=== PATIENT | male | born 1965 | race Caucasian/White ===

== ENCOUNTER 2023-03-31 08:52 | Emergency (ER) | payer OTHER, SELFPAY ==
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
[2023-03-31 09:09] VITALS: BP 174/102; PULSE 80; RESP 16; TEMP 37.2; O2SAT 99
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
== END 2023-03-31 10:58 | disposition home or self-care (01) ==
PROVIDERS: Emergency Provider Nurse Practitioner
DX: S42.022A Displaced fracture of shaft of left clavicle, initial encounter for closed fracture (principal); V17.4XXA Pedal cycle driver injured in collision with fixed or stationary object in traffic accident, initial encounter; Y93.55 Activity, bike riding; I10 Essential (primary) hypertension; R07.81 Pleurodynia
CPT/HCPCS: 71100; 73000; 99214; A4565; G0463

== ENCOUNTER 2023-04-02 10:16 | Emergency (ER) | payer OTHER, SELFPAY ==
[2023-04-02 10:27] VITALS: BP 138/80; PULSE 95; RESP 18; TEMP 36.6; O2SAT 96
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
== END 2023-04-02 11:13 | disposition home or self-care (01) ==
PROVIDERS: Emergency Provider Nurse Practitioner
DX: S42.002A Fracture of unspecified part of left clavicle, initial encounter for closed fracture (principal); T14.90XA Injury, unspecified, initial encounter
CPT/HCPCS: 99213; A4565; G0463

== ENCOUNTER 2023-04-26 18:20 | Inpatient (IN) | payer OTHER, SELFPAY ==
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
--- NOTE | ~2023-04-26 | CT_ITS ---
EXAMINATION: CT abdomen pelvis w con DATE: 04/26/2023 20:56 INDICATION: abdominal pain, elevated LFT's TECHNIQUE: Computed tomography (CT) of the abdomen and pelvis was performed with 100 mL Omnipaque-350 intravenous contrast. Automated exposure control and iterative reconstruction technique were employe d. The dose-length product was 936.13 mGy-cm. COMPARISON: None. FINDINGS: Motion artifact in the lungs and upper abdomen. Lower thorax: Small hiatal hernia. Coronary artery calcifications. Liver: Enlarged fatty infiltrated liver. Biliary/Gallbladder: Gallbladder is normal. No bile duct dilation. Pancreas: No mass or duct dilation. Spleen: Normal. Adrenals:No mass. Kidneys: No suspicious mass, obstructing stone, or hydronephrosis. GI tract: Distal esophageal wall thickening and edema. No small or large bowel dilation. Normal appen chiquis. Diverticulosis without diverticulitis. Mesentery/Peritoneum: No ascites, mass, or free air. Retroperitoneum: No mass. Atherosclerotic abdominal aortic and/or arterial calcifications. Pelvis: Pelvic organs are within normal limits. Soft Tissues: Soft tissues and body wall unremarkable. Bones: No acute osseous finding. IMPRESSION: Esophagitis and distal esophageal wall thickening, consider referral for outpatient endoscopy. Hepatomegaly and steatosis Reviewed, dictated and finalized at location K. IMPRESSION: Esophagitis and distal esophageal wall thickening, consider referral for outpat ient endoscopy. Hepatomegaly and steatosis
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
--- NOTE | ~2023-04-26 | US_ITS ---
EXAMINATION: US abdomen limited DATE: 04/27/2023 08:56 INDICATION: Hepatitis. TECHNIQUE: Multiple grayscale and Doppler ultrasound images of the abdomen were obtained. COMPARISON: CT abdomen and pelvis 04/26/2023 FINDINGS: The visualized portions of the head and body of the pancreas are normal. There is diffuse h epatic steatosis. No liver surface nodularity. There is normal flow in main portal vein. The gallblad lesa is normal in size. No gallstones or gallbladder wall thickening. There was no sonographic Gomes sign. The common duct is normal and measures 3 mm. IMPRESSION: 1. Diffuse hepatic steatosis. Reviewed, dictated and finalized at location A.
[2023-04-26 18:18] VITALS: BP 118/86; PULSE 126; RESP 24; TEMP 37.2; O2SAT 98
[2023-04-26 18:44] LABS: Basophils Percent Auto 0.2 % (0.2-1.2); Hematocrit 44.1 % (42.0-52.0); Hemoglobin 15.8 g/dL (14.0-18.0); Immature Granulocyte Absolute 0.09 K/mm3 (0.00-0.031); Immature Platelet Fraction Pct 10.7 % (0.9-11.2); Lymphocytes Percent Auto 5.6 % (18.3-44.2); Mean Corpuscular HGB Conc 35.8 g/dl (32-36); Mean Corpuscular Hemoglobin 34.6 pg (26-34); Mean Corpuscular Volume 96.5 fl (80-100); Mean Platelet Volume 11.1 fl (7.4-10.4); Monocytes Absolute Auto 0.4 K/mm3 (0.1-0.6); Neutrophils Percent Auto 89.2 % (45.5-73.1); Platelet Count Result 103 k/mm3 (150-375); Red Blood Count 4.57 M/mm3 (4.6-6.20); Red Cell Distribution Width 12.7 % (11.5-14.5)
[2023-04-26 18:49] LABS: Ethanol < 10 mg/dL (<10)
[2023-04-26 19:00] LABS: Albumin Level 4.5 g/dL (3.5-5.1); Alkaline Phosphatase 159 U/L (38-126); Anion Gap 19 mmol/L (8-16); Bilirubin,Total 6.2 mg/dL (0.2-1.3); Blood Urea Nitrogen 20 mg/dL (9-20); Calcium 8.6 mg/dL (8.4-10.2); Carbon Dioxide 16 mmol/L (22-30); Chloride 91 mmol/L (98-107); Estimated CRCL calculation 70 ml/min; Estimated Glomerular Filt Rate > 60; Glucose 102 mg/dL (65-110); Sodium 126 mmol/L (137-145)
[2023-04-26 19:10] LABS: Platelet Estimate Decreased (Adequate); Schistocytes None Seen (NORMAL)
[2023-04-26 19:30] LABS: Thyroid Stimulating Hormone 0.645 uIU/mL (0.465-4.680)
[2023-04-26 19:59] LABS: Alanine Aminotransferase > 3750 U/L (6-50)
[2023-04-26 20:04] LABS: Aspartate Amino Transferase > 7500 U/L (17-59)
[2023-04-26 20:51] LABS: Amphetamine Screen Urine Negative (Negative); Barbiturate Screen Urine Negative (Negative); Benzodiazepines Screen Urine Negative (Negative); Cannabinoid Screen Urine Positive (Negative); Cocaine Screen Urine Negative (Negative); Methadone Screen Urine Negative (Negative); Opiate Screen Urine Negative (Negative); Phencyclidine Screen Urine Negative (Negative)
[2023-04-26 20:53] LABS: Influenza A QL RT-PCR Negative (Negative); Influenza B QL RT-PCR Negative (Negative); RSV RNA, RT-PCR Negative (Negative); SARS-CoV-2 RNA PCR Negative (Negative)
[2023-04-26 20:53] LABS: Ammonia 14 umol/L (9-30)
[2023-04-26 21:00] LABS: INR 2.3; Prothrombin Time 26.8 Seconds (11.1-14.7)
[2023-04-26 21:01] LABS: Partial Thromboplastin Time 34.2 SECONDS (22.3-36.8)
[2023-04-26] MEDS: THIAMINE 500 MG/NS 100 ML 500 MG/100 ML BAG 200 MG IVPB (21:03)
[2023-04-26 21:04] LABS: Appearance Urine Turbid (Clear); Bacteria Urine None Seen /hpf; Bilirubin Urine 3+ (Negative); Blood Urine 2+ (Negative); Color Urine Dark Yellow (Yellow); Glucose Urine UA Negative (Negative); Granular Casts Urine Present /lpf; Ketones Urine Trace mg/dL (Negative); Leukocyte Esterase Ur 1+ LEU/UL (Negative); Need Manual Microscopic Reviewed; Nitrate Urine Positive (Negative); Non Pathogenic Casts >20; Protein Urine 2+ mg/dL (Negative); Specific Grav Ur 1.026 (1.001-1.035); Squamous Epithelial Cell Urine Many /hpf (Few); WBC Urine 0-5 /hpf
[2023-04-26] MEDS: SODIUM CHLORIDE 0.9% IV 1,000 ML 999 ML IV CONT (21:04)
[2023-04-26 21:06] VITALS: BP 108/74; PULSE 112; RESP 18; O2SAT 97
[2023-04-26 21:06] LABS: Add Urine Microscopic? YES
--- NOTE | 2023-04-26 21:27 | ED.GENADULT ---
HPI - General Adult General Chief complaint: Psychiatric Symptoms Stated complaint: visual hallucinations, tachycardia Time Seen by Provider: 04/26/23 20:02 History of Present Illness HPI narrative: Patient is a 58-year-old gentleman who presents the emergency department with chief complaint of visual and auditory hallucinations. Patient reports he has prior history of alcohol use normally drinks minimum a sixpack a day on the weekdays but mixes that with shots and also drinks a lot more on the weekends the patient reports that he recently had a fall had a fracture of his clavicle and has had intermittent episodes of having visual hallucinations since then the patient reports that he has not had a drink in multiple hours today and reports that he sees things and hears things the patient also reports that he is shaky and reports that he does feel somewhat weak Related Data Allergies Allergy/AdvReac Type Severity Reaction Status Date / Time No Known Allergies Allergy Verified 04/26/23 18:34 Review of Systems Review of Systems: A 10 system review of systems was completed on the patient and is negative except for what is stated in the HPI. Nursing and ancillary documentation was reviewed. Exam Narrative: GENERAL: Well-appearing, well-nourished, and in no acute distress. HEAD: Normocephalic, atraumatic. EYES: PERRLA and EOMI. icteric ENT: Nares clear, no rhinorrhea or epistaxis. Mucous membranes moist. NECK: Supple. CHEST: Clear to auscultation. No respiratory distress. HEART: Regular rate and rhythm. No murmur heard. Normal peripheral pulses. ABDOMEN: Soft, nontender, nondistended, normal active bowel sounds. EXTREMITIES: Normal range of motion. No edema. SKIN: Warm, dry, no rash. NEURO: No focal deficits. Alert and oriented x3. Somewhat tremulous PSYCH: Normal mood and affect. Course Vital Signs Vital signs: Vital Signs Temperature 37.2 C 04/26/23 18:18 Pulse Rate 126 H 04/26/23 18:18 Respiratory Rate 24 H 04/26/23 18:18 Blood Pressure 118/86 04/26/23 18:18 Pulse Oximetry 98 04/26/23 18:18 Oxygen Delivery Room Air 04/26/23 18:18 Temperature 37.2 C 04/26/23 18:18 Pulse Rate 112 H 04/26/23 23:06 Respiratory Rate 15 04/26/23 23:06 Blood Pressure 138/98 H 04/26/23 23:06 Pulse Oximetry 97 04/26/23 23:06 Oxygen Delivery Room Air 04/26/23 18:18 Medical Decision Making [facility] Narrative Medical decision making narrative: Differential diagnosis includes alcohol withdrawal, psychiatric complaint, psychosis, liver failure, hepatic encephalopathy, infection Laboratory studies were obtained and the patient showed a CBC with a white count of 9.0 hemoglobin is 15.8 platelets were slightly decreased at 103 electrolytes showed a sodium of 126 potassium was 3.0 CO2 was 16 renal function showed a creatinine of 1.0 bilirubin was 6.2 and AST was greater than 7500 ALT was greater than 3750 ammonia was 14 TSH was normal at 0.645 urinalysis showed positive nitrate +1 leukocyte esterase Urine drug screen was positive for cannabinoids EtOH was less than 10 flu and COVID and RSV were negative CT head CT C-spine and CT abdomen pelvis showed no acute abnormalities EKG showed sinus tachycardia with a rate of 111 The patient has a calculated MELD score of 30 Patient was given 300 mg of thiamine was also given IV fluids and Ativan in the emergency department patient was given a gram of Rocephin to treat possible urinary tract infection The case was discussed with the hepatology service at [facility] and the patient is currently on the wait list at [facility] The hepatology service recommended since the patient does have elevated liver enzymes that there is possibility that this could be related to acetaminophen toxicity and further questioning of the patient did reveal that he has been taking a fair amount of Tylenol a Tylenol level has been sent on the patient and also the patient was started on Acet
--- NOTE | 2023-04-26 21:58 | ECG_ITS ---
Measurements Intervals [place] Rate: 111 P: 63 ID: 140 QRS: 38 QRSD: 101 T: 61 QT: 373 QTc: 509 Interpretive Statements SINUS TACHYCARDIA INCOMPLETE RIGHT BUNDLE BRANCH BLOCK NONSPECIFIC ST & T-WAVE ABNORMALITY- DIFFUSE LEADS BASELINE ARTIFACT- I, III, AVR, AVL, AVF, V1-V2 ABNORMAL ECG NO PREVIOUS ECG AVAILABLE FOR COMPARISON Electronically Signed On 04-27-2023 6:28:33 CDT by Josh Turner D.O.
[2023-04-26] MEDS: predniSONE 20 MG TABLET 60 MG PO (22:18)
[2023-04-26] MEDS: POTASSIUM CHLORIDE 20 MEQ PACKET (FOR LIQUID) 40 MEQ PO (22:18)
[2023-04-26] MEDS: LORazepam INJ (*CRX) 2 MG/ML VIAL 1 MG IV PUSH (22:18)
[2023-04-26 22:23] LABS: Magnesium 1.7 mg/dL (1.6-2.3)
[2023-04-26] MEDS: rifAXIMin 550 MG TABLET PO (23:00)
[2023-04-26] MEDS: MAGNESIUM SULF 2 GM/WATER 50ML 2 GM/50 ML BAG IVPB (23:00)
[2023-04-26 23:06] VITALS: BP 138/98; PULSE 112; RESP 15; O2SAT 97
[2023-04-26] MEDS: LORazepam INJ (*CRX) 2 MG/ML VIAL 4 MG IV PUSH (23:53)
[2023-04-26] MEDS: SODIUM CHLORIDE 0.9% IV 1,000 ML 100 ML IV CONT (23:54)
[2023-04-27] VITALS (12 sets, daily range): BP systolic 111–170; BP diastolic 77–118; PULSE 86–142; RESP 17–30; TEMP 36.2–37.6; O2SAT 92–97; BMI 24.4
[2023-04-27 00:02] LABS: Acetaminophen < 10 ug/mL (10-30)
[2023-04-27] MEDS: THIAMINE 500 MG/NS 100 ML 500 MG/100 ML BAG 200 MG IVPB ×2 (00:20→09:37)
[2023-04-27 00:37] LABS: Hepatitis B Surface Antigen Negative (Negative)
[2023-04-27 00:38] LABS: Alkaline Phosphatase 141 U/L (38-126); Anion Gap 11 mmol/L (8-16); Blood Urea Nitrogen 21 mg/dL (9-20); CRP 0.9 mg/dL (<1.0); Calcium 8.1 mg/dL (8.4-10.2); Carbon Dioxide 20 mmol/L (22-30); Chloride 93 mmol/L (98-107); Estimated CRCL calculation 94 ml/min; Estimated Glomerular Filt Rate > 60; Glucose 105 mg/dL (65-110); Magnesium 2.7 mg/dL (1.6-2.3); Phosphorus 2.7 mg/dL (2.5-4.5); Potassium 3.7 mmol/L (3.4-5.0); Sodium 124 mmol/L (137-145)
[2023-04-27 00:43] LABS: HAV RESULT Negative (Negative); Hepatitis B Core IgM Result Negative (Negative)
[2023-04-27 00:54] LABS: Hepatitis C Virus Antibody Negative (Negative)
[2023-04-27 00:55] LABS: Alanine Aminotransferase > 3750 U/L (6-50)
--- NOTE | 2023-04-27 00:57 | ADMGEN ---
This patient, Shaun Thompson, was admitted to Intensive Care Unit-1. Patient/family oriented to hospital policies and general routines including ID bracelet, bed and alarms, visiting hours, pain management, procedures, bathroom and other care routines, personal items, smoking policy, room service/diet, and visiting hours. Information on how to activate the Rapid Response Team has been discussed. Patient/Family are encouraged to report perceived risks to care and to ask questions if they do not understand what they are told or what they should do.
[2023-04-27 01:13] LABS: Aspartate Amino Transferase > 7500 U/L (17-59); Lactate Dehydrogenase > 5000 U/L (120-246)
--- NOTE | 2023-04-27 01:50 | PC.NURSE ---
called DR. Mo at [phone] he answeres the phone at [phone]
[2023-04-27] MEDS: LORazepam INJ (*CRX) 2 MG/ML VIAL 4 MG IV PUSH ×2 (02:06→04:08)
[2023-04-27 02:24] LABS: Thyroid Stimulating Hormone Reflex 0.327 uIU/mL (0.465-4.68)
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
[2023-04-27 03:15] LABS: Ferritin > 2000.00 ng/mL (11.1-264)
[2023-04-27 03:42] LABS: Free T4 Free Thyroxine Reflex 2.73 ng/dL (0.78-2.19)
[2023-04-27] MEDS: hydrALAZINE HCL 20 MG/ML VIAL 10 MG IV PUSH (03:51)
[2023-04-27 05:06] LABS: Basophils Percent Auto 0.1 % (0.2-1.2); Hematocrit 39.5 % (42.0-52.0); Hemoglobin 14.3 g/dL (14.0-18.0); Immature Granulocyte Absolute 0.06 K/mm3 (0.00-0.031); Immature Granulocyte Percent A 0.9 % (0-0.5); Immature Platelet Fraction Pct 9.2 % (0.9-11.2); Lymphocytes Absolute Auto 0.16 K/mm3 (0.9-3.2); Lymphocytes Percent Auto 2.4 % (18.3-44.2); Mean Corpuscular HGB Conc 36.2 g/dl (32-36); Mean Corpuscular Hemoglobin 34.7 pg (26-34); Mean Corpuscular Volume 95.9 fl (80-100); Mean Platelet Volume 11.2 fl (7.4-10.4); Monocytes Absolute Auto 0.3 K/mm3 (0.1-0.6); Monocytes Percent Auto 4.2 % (2.6-8.5); Neutrophils Absolute Auto 6.2 K/mm3 (1.3-6.7); Neutrophils Percent Auto 92.4 % (45.5-73.1); Platelet Count Result 92 k/mm3 (150-375); Red Blood Count 4.12 M/mm3 (4.6-6.20); Red Cell Distribution Width 12.5 % (11.5-14.5); White Blood Count 6.7 K/mm3 (4.5-10.0)
[2023-04-27 05:15] LABS: INR 2.8; Partial Thromboplastin Time 33.8 SECONDS (22.3-36.8); Prothrombin Time 31.2 Seconds (11.1-14.7)
[2023-04-27 05:16] LABS: Fibrinogen 272 mg/dl (215-510)
[2023-04-27 05:23] LABS: Albumin Level 3.8 g/dL (3.5-5.1); Alkaline Phosphatase 97 U/L (38-126); Anion Gap 16 mmol/L (8-16); Bilirubin,Total 5.7 mg/dL (0.2-1.3); Blood Urea Nitrogen 17 mg/dL (9-20); Calcium 8.1 mg/dL (8.4-10.2); Carbon Dioxide 16 mmol/L (22-30); Chloride 94 mmol/L (98-107); Estimated CRCL calculation 126 ml/min; Estimated Glomerular Filt Rate > 60; Glucose 136 mg/dL (65-110); Magnesium 2.2 mg/dL (1.6-2.3); Phosphorus 1.9 mg/dL (2.5-4.5); Potassium 3.3 mmol/L (3.4-5.0); Sodium 126 mmol/L (137-145)
[2023-04-27 05:56] LABS: Alanine Aminotransferase > 3750 U/L (6-50); Aspartate Amino Transferase > 7500 U/L (17-59); Lactate Dehydrogenase > 5000 U/L (120-246)
[2023-04-27] MEDS: PANTOPRAZOLE SODIUM IV 40 MG VIAL IV PUSH (08:51)
[2023-04-27] MEDS: methylPREDNISolone SOD SUCC 40 MG VIAL 32 MG IV PUSH (08:53)
[2023-04-27] MEDS: FOLIC ACID 1 MG/0.2 ML INJ IV PUSH (08:53)
[2023-04-27] MEDS: SODIUM CHLORIDE 0.9% IV 1,000 ML 125 ML IV CONT (08:53)
--- NOTE | 2023-04-27 09:05 | WPDCNINT ---
Assessment and Plan Assessment and plan (1) Acute hepatitis: Code(s): B17.9 - Acute viral hepatitis, unspecified Status: Acute Assessment and Plan: Patient presented with significantly elevated liver enzymes bilirubin INR and LDH. His ammonia is normal but his INR is 2.8 Patient has history of heavy alcohol use along with Tylenol use although his alcohol and Tylenol levels were both low Hepatitis viral panel was negative CT abdomen pelvis Esophagitis and distal esophageal wall thickening, consider referral for outpatient endoscopy. Hepatomegaly and steatosis Ultrasound right upper quadrant - Diffuse hepatic steatosis.. Normal flow in main portal vein At this point appears to be likely combination of alcohol-induced hepatitis and possible acetaminophen toxicity Consult GI Continue N-acetylcysteine infusion Change prednisone to IV Solu-Medrol with the colon dose as patient discriminant factor is high for alcohol hepatitis Monitor LFTs ammonia and INR Patient is currently on wait list at [facility] be transferred once bed is available (2) Alcohol withdrawal delirium, acute, hyperactive: Code(s): F10.931 - Alcohol use, unspecified with withdrawal delirium Status: Acute Assessment and Plan: Patient is getting p.r.n. Ativan based on his CIWA score May need Precedex Continue thiamine and folic acid (3) Thrombocytopenia: Code(s): D69.6 - Thrombocytopenia, unspecified Status: Acute Assessment and Plan: Baseline unknown. Likely multifactorial secondary to alcohol abuse and liver disease Monitor at this time Hold anticoagulants (4) Electrolyte abnormality: Code(s): E87.8 - Other disorders of electrolyte and fluid balance, not elsewhere classified Status: Acute Assessment and Plan: Replace low potassium and phosphate (5) Esophagitis: Code(s): K20.90 - Esophagitis, unspecified without bleeding Status: Acute Assessment and Plan: Continue Protonix (6) Encephalopathy: Code(s): G93.40 - Encephalopathy, unspecified Status: Acute Assessment and Plan: Multifactorial and likely secondary to sedatives at this time Continue thiamine dosing for for Wernicke encephalopathy at this time Head CT was negative Ammonia was no Plan DVT prophylaxis -SCDs Stress ulcer prophylaxis -on PPI Nutrition -and p.o. at this time Code Status - Full Code Total Critical Care Time - 40 minutes Due to a high probability of clinically significant, life threatening deterioration, the patient required my highest level of preparedness to intervene emergently and I personally spent this critical care time directly and personally managing the patient. This critical care time included obtaining a history; examining the patient; pulse oximetry; ordering and review of studies; arranging urgent treatment with development of a management plan; evaluation of patient's response to treatment; frequent reassessment; and discussions with other providers. It was exclusive of separately billable procedures and treating other patients and teaching time. Please see Assessment and Plan section and the rest of the note for further information on patient assessment and treatment [facility] [employer] Consult Note Consult date: 04/27/23 Reason for consult: Hepatitis HPI: Shaun Thompson is a 58 year old male with history of heavy alcohol abuse presented last night with complaint of auditory and visual hallucinations. Patient at this time is sedated with lorazepam for alcohol withdrawal and unable to provide any meaningful history. History was obtained from chart review and physician sign-out. Apparently the patient drinks 6 drinks a day every day except weekends when he drinks much more than that. He recently had a fall and had a fracture of his clavicle and since then he has been taking significant amount of Tylenol and Hollis for pain patient presented with auditory and visual halluci
[2023-04-27] MEDS: PHYTONADIONE ADULT INJ 10 MG in DEXTROSE 5% IN WATER 50 ML 100 MG IVPB (09:07)
[2023-04-27 09:46] LABS: Creatine Kinase 466 U/L (55-170)
[2023-04-27] MEDS: POTASSIUM PHOS,M-BASIC-D-BASIC 20 MMOL in SODIUM CHLORIDE 0.9% IV 250 ML 64.17 MMOL IVPB (10:09)
[2023-04-27] MEDS: LORazepam INJ (*CRX) 2 MG/ML VIAL IV PUSH (11:18)
[2023-04-27 12:08] LABS: Glucose Point of Care 134 mg/dl (65-105)
--- NOTE | 2023-04-27 13:15 | WPDGICN ---
Assessment and Plan Assessment and plan (1) Acute hepatitis: Code(s): B17.9 - Acute viral hepatitis, unspecified Status: Acute Assessment and Plan: Patient with markedly elevated LFTs on presentation. Etiology of this somewhat unclear. He does have a history of chronic alcohol use. But somewhat higher than expected from this. There is no history hypotension or passing out. No history of extraneous drug ingestion. He does has been taking Tylenol because of clavicle fracture. And of course has been drinking alcohol within 0 alcohol level on presentation. Patient now on Mucomyst for possible Tylenol hepatotoxicity. Will continue supportive care for now. His protime is slightly elevated he has taken vitamin K. Ammonia level currently felt to be normal. Await transfer to tertiary care center if at all feasible. (2) Alcohol withdrawal: Qualifiers: Complication of substance-induced condition: with perceptual disturbance Qualified Code(s): F10.932 - Alcohol use, unspecified with withdrawal with perceptual disturbance Code(s): F10.939 - Alcohol use, unspecified with withdrawal, unspecified Status: Acute Assessment and Plan: Patient with a history of heavy ongoing alcohol abuse. Admitted with an alcohol level of 0 raising the question of alcohol withdrawal. We will continue to monitor in. Because of alcohol hepatitis he may benefit from steroid therapy. (3) Encephalopathy: Code(s): G93.40 - Encephalopathy, unspecified Status: Acute Assessment and Plan: Patient with encephalopathy. His ammonia level is normal. He does have metabolic acidosis. No obvious toxins in the system aside from marijuana. Toxin profile otherwise unremarkable. Continue supportive care for this. (4) Fulminant hepatic failure: Code(s): K72.90 - Hepatic failure, unspecified without coma Status: Acute Assessment and Plan: Markedly elevated transaminase raise a question of fulminant liver failure. Suggest that he would best be followed tertiary care center for a referral can be made. Will follow up continue supportive care here. (5) Alcoholism: Code(s): F10.20 - Alcohol dependence, uncomplicated Status: Acute GI Consult Note Consult date/time: 04/27/23 13:15 Reason for consult: Elevated LFTs and mental confusion HPI: Shaun Thompson is a 58 year old male I am asked to see because of elevated LFTs and mental confusion. Patient with a longstanding history of alcohol abuse. Typically drinks at least a 6 pack of alcohol a day. On the weekends he will drink more alcohol. He is reported to have recently had a fracture of the clavicle. He has been taking Tylenol for relief of pain. Yesterday was very confused with visual and auditory hallucinations. He was taken to the emergency room. Patient currently is unable to add any useful history. He has received Ativan because of his restlessness and confusion. Patient was noted to have elevated LFTs. A metabolic acidosis and admitted to the hospital. His alcohol level apparently was 0 on presentation raising the question of alcohol withdrawal symptoms. Review of Systems Review of Systems: ROS unobtainable: Yes unobtainable due to mental status PMFSH Past Medical History Medical History (Updated 04/27/23 @ 13:18 by Wilbert Martinez MD) Alcoholism Surgical History Surgical History (Updated 04/27/23 @ 02:58 by Brinda Weeks DO) Surgical history unknown Family History Family History (Updated 04/27/23 @ 03:47 by Brinda Weeks DO) Other Unknown family medical history Social History Social History (Updated 04/27/23 @ 03:49 by Brinda Weeks DO) Smoking status: Unknown if ever smoked Alcohol intake: current Alcohol use details: At least a 6 pack a day during the week with shots of hard liquor. More heavy use during the weekends Spiritual care concerns: No Meds Home
--- NOTE | 2023-04-27 15:45 | PM.TDS ---
Transfer Discharge Sum: Prov Provider Date of admission: 04/27/23 12:29 Primary care physician: Mariela Vang, MD Admitting clinician: Brnida Weeks DO Consults: 04/26/23 23:53 Consult to Physician Routine Comment: Consulting Provider: Hailey Mo Reason for consultation: As you mentioned liver failure, alcohol withdrawal Has provider been notified: Yes 04/27/23 Consult to Physician Routine Comment: spoke with Maggi in the GI Lab@[id number](ER,US) Consulting Provider: Wilbert Martinez assistant director of plant operations/MD group to consult: GI Reason for consultation: Hepatitis Has provider been notified: Yes DS: Admitting Diagnosis Discharge Date 04/27/23 Admitting Diagnosis Hallucinations Transfer Discharge Sum: Med Medications Active and Home Medications: Home Medications tramadol 50 mg tablet 50 mg PO Q6H PRN pain #15 tabs 03/31/23 [Rx Confirmed 04/27/23] hydrocodone 5 mg-acetaminophen 325 mg tablet 1 tablet PO Q8H PRN pain #15 tabs 04/02/23 [Rx Confirmed 04/27/23] Active Medications Folic Acid (Folic Acid 1 Mg/0.2 Ml Inj) 1 mg IV PUSH QAM KYREE Last Admin: 04/27/23 08:53 Dose: 1 mg Hydralazine HCl (Hydralazine Hcl 20 Mg/Ml Vial) 10 mg IV PUSH Q4H PRN PRN Reason: Systolic BP > 160 Last Admin: 04/27/23 03:51 Dose: 10 mg Ceftriaxone Sodium (Rocephin 1 Gm/Ns 50 Ml) 1 gm in 50 mls @ 100 mls/hr IVPB Q24H KYREE Thiamine HCl () 500 mg in 100 mls @ 200 mls/hr IVPB Q8H [facility] Last Infusion: 04/27/23 10:15 Dose: Infused Sodium Chloride (Normal Saline Iv) 1,000 mls @ 125 mls/hr IV CONT .Q8H [facility] Last Admin: 04/27/23 08:53 Dose: 125 mls/hr Acetylcysteine 7,750 mg/ (Dextrose) 1,038.75 mls @ 64.922 mls/hr IVPB ONCE ONE Stop: 04/27/23 21:09 Last Admin: 04/27/23 06:08 Dose: 64.92 mls/hr Acetylcysteine 8,400 mg/ (Dextrose) 1,042 mls @ 65.125 mls/hr IVPB ONCE ONE Stop: 04/27/23 21:01 Lorazepam (Lorazepam Inj (*Crx) 2 Mg/Ml Vial) 2 mg IV PUSH Q2H PRN PRN Reason: Withdrawal Last Admin: 04/27/23 11:18 Dose: 2 mg Lorazepam (Lorazepam Inj (*Crx) 2 Mg/Ml Vial) 4 mg IV PUSH Q2H PRN PRN Reason: CIWA score 10-20 Last Admin: 04/27/23 04:08 Dose: 4 mg Methylprednisolone Sodium Succinate (Methylprednisolone Sod Succ 40 Mg Vial) 32 mg IV PUSH QAM [facility] Last Admin: 04/27/23 08:53 Dose: 32 mg Pantoprazole Sodium (Pantoprazole Sodium Iv 40 Mg Vial) 40 mg IV PUSH QAM [facility] Last Admin: 04/27/23 08:51 Dose: 40 mg Rifaximin (Rifaximin 550 Mg Tablet) 550 mg PO Q12HR [facility] Last Admin: 04/27/23 08:39 Dose: Not Given Transfer Discharge Sum: Hosp Hospital Course Hospital course: 58-year-old male with a past medical history of alcoholism who presented to the ER with 2 days of auditory and visual hallucinations.? Patient usually drinks a minimum of a 6 pack per day on the weekdays and some shots and more heavy alcohol use and drinking on the weekends.? Today the patient had had a portion of an open beer that he had sitting around the house.? But prior to that he had not had anything to drink at least for a day.? His alcohol level on arrival to the ER was 0.? He recently had a fall with a fracture of his clavicle and has been having intermittent visual hallucinations since the fall.? He has been taking Tylenol at home up to 1.5 g per dose since he had his clavicular fracture.? Acetaminophen level obtained in the ER was below the cutoff.? The patient was noted to be tremulous in the ER and weak.? He was seeing and hearing things that were not present.? The hallucinations were not telling him to hurt himself or anyone else.? However the patient at the time my evaluation was alert oriented to person time and his date.? He had would answer some questions appropriately and then would go off on a tangent referring to himself in the 3rd person.? He could not provide me with much history in thus majority of the history was obtained from the ER records.? The patient was noted to be very restless upon arrival to t
== END 2023-04-27 17:08 | disposition short-term general hospital (02) | DRG 441 ==
LOC: ANHED 23:52 → ANHICU 04-27 00:59
PROVIDERS: Emergency Medicine; Internal Medicine; Admitting Provider Internal Medicine; Emergency Provider Emergency Medicine; PCP Family Medicine; Visit Provider Student in an Organized Health Care Education/Training Program
DX: K72.90 Hepatic failure, unspecified without coma (principal); G92.8 Other toxic encephalopathy; F10.232 Alcohol dependence with withdrawal with perceptual disturbance; E87.21 Acute metabolic acidosis; E51.2 Wernicke's encephalopathy; F10.231 Alcohol dependence with withdrawal delirium; K70.10 Alcoholic hepatitis without ascites; T39.1X1A Poisoning by 4-Aminophenol derivatives, accidental (unintentional), initial encounter; K20.90 Esophagitis, unspecified without bleeding; R94.31 Abnormal electrocardiogram [ECG] [EKG]; E87.6 Hypokalemia; S42.009G Fracture of unspecified part of unspecified clavicle, subsequent encounter for fracture with delayed healing; W19.XXXD Unspecified fall, subsequent encounter; D69.59 Other secondary thrombocytopenia; T42.75XA Adverse effect of unspecified antiepileptic and sedative-hypnotic drugs, initial encounter
CPT/HCPCS: 36415; 70450; 72125; 74177; 76705; 80053; 80074; 80307; 81001; 82140; 82550; 82728; 82948; 83615; 83735; 84100; 84439; 84443; 85025; 85055; 85384; 85610; 85730; 86140; 87040; 87086; 87637; 93005; 96361; 96365; 96366; 96367; 96375; 96376; 99285; A9270; C9113; G0378; J0132; J0360; J0696; J2060; J2920; J3411; J3430; J3475; J7030; J7050; J7060; J7070; J7512; Q9967